=== PATIENT | male | born 1965 | race Caucasian/White ===

== ENCOUNTER 2021-04-23 09:34 | Day surgery (SDC) | payer BC ==
[2021-04-18 13:38] VITALS: BMI 35.4
--- NOTE | 2021-04-22 18:34 | HP ---
HISTORY AND PHYSICAL DATE OF SURGERY: 04/23/2021 Roni Brennan is a 55-year-old gentleman seen with progressive right knee pain. We discussed options regarding treatment. He elected to proceed with right knee arthroscopy. Consent was obtained. PAST MEDICAL HISTORY: Hypertension, gout. PAST SURGICAL HISTORY: Noncontributory. DAILY MEDICATIONS: Allopurinol, colchicine, lisinopril. ALLERGIES: NONE. SOCIAL HISTORY: He denies tobacco use. PHYSICAL EVALUATION OF THE RIGHT KNEE: Range of motion is zero to 130. Mild effusion. Tenderness along the medial and lateral joint lines. Positive medial Ivonne's. Positive lateral Ivonne's. Ligaments stable. Hip rotation without pain. Patellar crepitus with range of motion. Ligaments stable. Distal neurovascular exam intact. RADIOGRAPHS: Radiographs of the right knee revealed mild osteoarthritic changes. Right knee MRI revealed medial and lateral meniscal tears, a parameniscal cyst and osteoarthritic changes. IMPRESSION: 1. Internal derangement of right knee with medial and lateral meniscal tears. 2. Hypertension. 3. Gout. PLAN: Right knee arthroscopy with partial meniscectomy and debridement. MMODL / IJN: [id number] /
[~2021-04-23 09:34] MED LIST: DEXAMETHASONE SOD PHOSPHATE 4 MG/ML 1 ML VIAL IV ONE; HYDROmorphone 0.5 MG/0.5 ML SYRINGE IVP PRN; LACTATED RINGERS 1,000 ML IV SCH; LIDOCAINE 1% (10MG/ML) FOR IV START INTRADERMA PRN; ONDANSETRON 4 MG/2 ML VIAL IVP ONE; SCOPOLAMINE 1.5MG/72HR PATCH TRANSDERM ONE
[2021-04-23] MEDS ORDERED: HYDROmorphone (PF) 1 MG/ML ONE (10:39)
[2021-04-23] MEDS ORDERED: LIDOCAINE 1% INJ 10MG/ML (20 ML MDV) ONE (10:39)
[2021-04-23] MEDS ORDERED: fentaNYL (PF) 50 MCG/ML 2 ML AMP ONE (10:39)
[2021-04-23] MEDS ORDERED: PROPOFOL 10 MG/ML 20 ML VIAL IV ONE (10:39)
[2021-04-23] MEDS ORDERED: BUPIVACAINE (PF) 0.25% 30 ML VIAL INTRAARTIC ONE (10:56)
[2021-04-23 11:24] VITALS: TEMP 96.9
--- NOTE | 2021-04-23 11:30 | P.OP ---
Date of Procedure: 04/23/21 Preoperative Diagnosis: Internal derangement right knee Postoperative Diagnosis: 1. Tear medial meniscus right knee 2. Grade 2 chondromalacia medial femoral condyle right knee 3. Reactive synovitis medial, lateral and suprapatellar compartments right knee Procedure(s) Performed: 1. Arthroscopic partial medial meniscectomy right knee 2. Arthroscopic chondroplasty medial femoral condyle right knee 3. Arthroscopic partial synovectomy medial, lateral and suprapatellar compartments right knee Anesthesia: CELINAA, local Surgeon: Gregorio Pedroza Estimated Blood Loss (ml): 5 Pathology: none sent Condition: stable Disposition: PACU Indications for Procedure: 55-year-old patient seen with progressive right knee pain. After discussing treatment options, he elected to proceed with arthroscopy. Operative Findings: see description of procedure Description of Procedure: Patient was taken to the operative suite. Patient underwent a general anesthetic by the department of anesthesia. Patient was given preoperative anti biotics. The right lower extremity was placed in a well-padded arthroscopic leg desouza. The right leg was prepped and draped in the normal sterile orthopedic fashion. A lateral parapatellar and suprapatellar incision was made. Trochars were inserted. Arthroscopy was initiated. Suprapatellar pouch revealed diffuse thick reactive synovitis. The patellofemoral joint appeared to articulate flora ruently. There was grade 1 chondromalacia the patella with no tears present. The scope was guided into the medial gutter. No loose bodies or plica were identified The scope was then guided into the medial compartment. A medial parapatellar incision was made. Trocar inserted followed by probe. There was a radial tear posterior horn medial meniscus. There were grade 2 chondromalacia changes of medial femoral condyle with some osteochondral flap tears present. There was thick reactive synovitis anteriorly. I performed a partial medial meniscectomy getting down to stable meniscal tissue. I performed a chondroplasty of the medial femoral condyle getting down to stable osteochondral tissue. I performed a partial synovectomy decompressing the reactive synovitis. The residual meniscus was stable. The residual osteochondral surface appeared stable. There was good decompression of the synovitis. Scope and probe were then guided into the intercondylar notch. Cruciates were identified, probed and found to be stable. The scope and probe were then guided into lateral compartment. Lateral meniscus revealed some mild superficial fraying midbody area. There was no significant chondromalacia present in the lateral compartment. There was some thick reactive synovitis anteriorly. I introduced a motorized shaver. I debrided out the superficial fraying a lateral meniscus. I performed a partial synovectomy decompressing reactive synovitis. The shaver was removed. There was good decompression of the synovitis. The scope was in guided back into the suprapatellar compartment. I introduced a motorized shaver into the suprapatellar compartment. I debrided some piecemeal fragments of meniscus I encountered. I performed a partial synovectomy. Shaver was removed. There was good decompression of the synovitis. Instruments were now removed from the joint. The joint was infiltrated with .25% Marcaine. Steri-Strips were applied to the portal sites. Sterile dressings were applied. The patient was placed into a KALEIGH hose. No tourniquet was utilized. The patient was awakened, transferred to a bed and taken to recovery stable satisfactory condition.
[2021-04-23 11:34] VITALS: RESP 16
[2021-04-23 13:00] VITALS: BP 124/83; PULSE 63
== END 2021-04-23 13:21 | disposition home or self-care (01) ==
LOC: OR 09:34
PROVIDERS: ATTEND Orthopaedic Surgery
DX: S83.241A Other tear of medial meniscus, current injury, right knee, initial encounter (principal); I10 Essential (primary) hypertension; M10.9 Gout, unspecified; G47.33 Obstructive sleep apnea (adult) (pediatric)
CPT/HCPCS: 29881; J1100; J0690; J2405; J2001; J3010; J1170; J2704